=== PATIENT | female | born 1990 | race African-American/Black ===

== ENCOUNTER 2017-12-30 09:57 | Emergency (ER) | payer SELFPAY ==
[~2017-12-30] VITALS: Ht 162.6 cm; Wt 97.5 kg
[~2017-12-30 09:57] MED LIST: PRIL20CA PO; PROM25SU8 PO
[2017-12-30 10:05] VITALS: BP 153/93; PULSE 97; RESP 16; TEMP 98.4; O2SAT 100
[2017-12-30] MEDS ORDERED: ZITHTAB PO (10:21)
--- NOTE | 2017-12-30 10:23 | PD ---
HPI Chief Complaint: Cold / Flu Symptoms Time Seen by Provider: 10:09 Travel History International Travel<30 days: No Contact w/Intl Traveler<30days: No Traveled to known affect area: No History of Present Illness HPI 2 day h/o runny nose, congestion, ear fullness, dry cough, but denies any n/v/d/ cp/abdpain/backpain/. no alleviating or aggravating factors. PFSH Past Medical History Diminished Hearing: No Gastrointestinal Disorders: Yes (hx gastritis) GERD: Yes Immunizations Current: Yes Tetanus Vaccination: < 5 Years ?: Not : 1 Para: 0 : 1 Ectopic : No Ovarian Cysts: No Dilation and Curettage (D&C): No Tubal Ligation: No Past Surgical History Tonsillectomy: Yes (and ADENOIDS) Social History Alcohol Use: Yes (OCC) Tobacco Use: No Substance Use: No Allergies-Medications (Allergen,Severity, Reaction): Coded Allergies: No Known Allergies (Unverified Adverse Reaction, Unknown, 12/30/17) Reported Meds & Prescriptions Reported Meds & Active Scripts Active No Active Prescriptions or Reported Medications Review of Systems Except as stated in HPI: all other systems reviewed are Neg General / Constitutional: No: Fever Eyes: No: Visual changes HENT: Positive: Rhinorrhea, Congestion, Earache Cardiovascular: No: Chest Pain or Discomfort Respiratory: Positive: Cough Gastrointestinal: No: Abdominal Pain Genitourinary: No: Dysuria Musculoskeletal: No: Pain Skin: No Rash Neurologic: No: Weakness Psychiatric: No: Depression Endocrine: No: Polydipsia Hematologic/Lymphatic: No: Easy Bruising Physical Exam Narrative GENERAL: SKIN: Warm and dry. HEAD: Atraumatic. Normocephalic. EYES: Pupils equal and round. No scleral icterus. No injection or drainage. ENT: No nasal bleeding or discharge. Mucous membranes pink and moist., clear rhinorrhea, kassidy tm has effusion but without erythema/dullness/or other signs of infection. NECK: Trachea midline. No JVD. CARDIOVASCULAR: Regular rate and rhythm. RESPIRATORY: No accessory muscle use. Clear to auscultation. Breath sounds equal bilaterally. GASTROINTESTINAL: Abdomen soft, non-tender, nondistended. MUSCULOSKELETAL: Extremities without clubbing, cyanosis, or edema. No obvious deformities. NEUROLOGICAL: Awake and alert. No obvious cranial nerve deficits. Motor grossly within normal limits. Five out of 5 muscle strength in the arms and legs. Normal speech. PSYCHIATRIC: Appropriate mood and affect; insight and judgment normal. Data Data Last Documented VS Vital Signs Date Time Temp Pulse Resp B/P (MAP) Pulse Ox O2 Delivery O2 Flow Rate FiO2 12/30/17 10:05 98.4 97 16 153/93 (113) 100 MDM Medical Decision Making Medical Screen Exam Complete: Yes Emergency Medical Condition: Yes Medical Record Reviewed: Yes Differential Diagnosis uri v flu v bronchitis v om Narrative Course patient advised of viral nature of illness, and given wait and see abx prescription. only to be filled if over the next few days she develops fever and worsening symptoms rather than improvement. Diagnosis Primary Impression: Upper respiratory infection Qualified Codes: J06.9 - Acute upper respiratory infection, unspecified Patient Instructions: General Instructions, Upper Respiratory Infection (ED) Departure Forms: School Release, Return to School Date: Dec 31, 2017 Tests/Procedures Scripts Azithromycin (Zithromax Z-Rafa) 250 Mg Dspk 250 MG PO DIRECTED for Infection, #1 DSPK 0 Refills 500 MG (2 tabs) day 1, then 1 tab days 2-5. Prov: Malachi Canseco MD 12/30/17 Disposition: 01 DISCHARGE HOME Condition: Stable Malachi Canseco MD Dec 30, 2017 10:23
== END 2017-12-30 11:34 | disposition home or self-care (01) ==
LOC: NEPD 09:57
DX: J06.9 Acute upper respiratory infection, unspecified (principal)
CPT/HCPCS: 99283

== ENCOUNTER 2018-01-21 17:13 | Emergency (ER) | payer OTHER ==
[~2018-01-21] VITALS: Ht 160 cm; Wt 90.0 kg
[~2018-01-21 17:13] MED LIST changes: -PRIL20CA PO; -PROM25SU8 PO; +ZITHTAB PO
[2018-01-21 17:18] VITALS: BP 167/95; PULSE 89; RESP 16; TEMP 98.3; O2SAT 98
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
[2018-01-21] MEDS ORDERED: TRAM50 PO (18:21)
[2018-01-21] MEDS ORDERED: BACL20TA PO (18:21)
== END 2018-01-21 18:34 | disposition home or self-care (01) ==
LOC: NEPD 17:13
DX: S39.012A Strain of muscle, fascia and tendon of lower back, initial encounter (principal); V89.2XXA Person injured in unspecified motor-vehicle accident, traffic, initial encounter
CPT/HCPCS: 72100; 84703; 99283